=== PATIENT | female | born 1980 | race African-American/Black ===

== ENCOUNTER 2019-03-10 17:57 | Emergency (ER) | payer MEDICAID ==
[~2019-03-10] VITALS: Ht 175.3 cm; Wt 79.0 kg
[~2019-03-10 17:57] MED LIST: INSLIS SUBCUT; LIP40 PO; neurontin
[2019-03-10 18:31] VITALS: BP 150/100
== END 2019-03-10 22:52 | disposition left against medical advice (07) ==
LOC: ER 17:57
DX: Z53.21 Procedure and treatment not carried out due to patient leaving prior to being seen by health care provider (principal)

== ENCOUNTER 2021-06-28 12:28 | Emergency (ER) | payer MEDICAID ==
[~2021-06-28] VITALS: Ht 162.6 cm; Wt 64.0 kg
[2021-06-28 12:34] VITALS: BP 133/94
[2021-06-28 15:35] LABS: BASOPHILS % 0.8 % (0.0-2.0); EOSINOPHILS % 4.7 % (0.0-5.0); HEMATOCRIT. 30.4 % (36.0-48.0); HEMOGLOBIN. 9.3 g/dL (12.0-16.0); LYMPHOCYTES % 18.9 % (20.0-50.0); MEAN CORPUSCULAR HEMOGLOBIN 24.6 pg (28.0-32.0); MEAN PLATELET VOLUME 7.8 fl (7.4-10.4); NEUTROPHILS % 69.6 % (40.0-76.0); PLATELET 428 x1000/uL (130-400); RED CELL DISTRIBUTION WIDTH 19.1 % (11.6-14.6)
[2021-06-28 15:39] LABS: CHLORIDE 109 mEq/L (98-107)
[2021-06-28 15:41] LABS: ETHANOL BLOOD < 10 mg/dL
[2021-06-28] MEDS ORDERED: GABAPENTIN 300MG CAPSULE PO STA (15:48)
[2021-06-28] MEDS ORDERED: FERR325T6 PO (17:46)
[2021-06-28] MEDS ORDERED: GABA-532 PO (17:46)
== END 2021-06-28 18:29 | disposition home or self-care (01) ==
LOC: ER 12:32
DX: R51.9 Headache, unspecified (principal); D64.9 Anemia, unspecified; F22 Delusional disorders; E11.9 Type 2 diabetes mellitus without complications; I10 Essential (primary) hypertension; Z98.890 Other specified postprocedural states; Z79.899 Other long term (current) drug therapy; Z88.6 Allergy status to analgesic agent
CPT/HCPCS: 36415; 80048; 80307; 80320; 80329; 85025; 93005; 99284; G0480